=== PATIENT | female | born 1980 | race African-American/Black ===

== ENCOUNTER 2018-09-10 05:17 | Emergency (ER) | payer BC, OTHER ==
[2018-09-10] MEDS ORDERED: ACETAMINOPHEN 325 MG TABLET (FP) PO ONE (05:35)
[2018-09-10 05:47] VITALS: BMI 33.9
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
[2018-09-10 07:25] VITALS: BP 143/90; PULSE 84; TEMP 98.4
== END 2018-09-10 07:24 | disposition home or self-care (01) ==
LOC: JER 05:17
DX: R51 Headache (principal); Y07.03 Male partner, perpetrator of maltreatment and neglect; Y93.89 Activity, other specified; Y92.89 Other specified places as the place of occurrence of the external cause; Y99.0 Civilian activity done for income or pay; F32.9 Major depressive disorder, single episode, unspecified; Z87.891 Personal history of nicotine dependence
CPT/HCPCS: 99282-25

== ENCOUNTER 2020-12-18 20:01 | Inpatient (IN) | payer BC, OTHER ==
[2020-12-18] MEDS ORDERED: morphine CARPU-JECT 4 MG/1 ML DISP.SYRIN IVPUSH ONE (23:56)
[2020-12-18] MEDS ORDERED: SODIUM CHLORIDE 1,000 ML IV STA (23:56)
[2020-12-19] MEDS ORDERED: ONDANSETRON 4 MG/2 ML VIAL IVPUSH ONE
[2020-12-19 00:04] LABS: BASO % 0.2 % (0-2.0); EOS % 0.1 % (0-4.5); HEMOGLOBIN 12.1 GM/dL (10.7-15.3); LYMPH % 6.7 % (8-40); MCH 24.3 pg (25.7-33.7); MCHC 34.5 g/dl (32.0-36.0); MEAN CELL VOLUME 70.4 fl (80-96); MEAN PLT VOLUME 7.9 fl (7.5-11.1); MONO % 4.8 % (3.8-10.2); NEUT % 88.2 % (42.8-82.8); PLATELET COUNT 270 10^3/uL (134-434); RBC 4.97 M/mm3 (3.60-5.2); RDW 15.3 % (11.6-15.6)
[2020-12-19 00:05] LABS: EPI CELLS 4 /uL (0-25.1); HYALINE CASTS 1 /uL (0-3.1); URINE APPEARANCE CLEAR; URINE BACTERIA 7 /uL (0-1359); URINE BILIRUBIN NEGATIVE (NEGATIVE); URINE COLOR YELLOW; URINE GLUCOSE (UA) 1+ (NEGATIVE); URINE KETONE NEGATIVE (NEGATIVE); URINE LEUK ESTERASE NEGATIVE (NEGATIVE); URINE NITRITE NEGATIVE (NEGATIVE); URINE PROTEIN 2+ (NEGATIVE); URINE RBC 1525 /uL (0-23.9); URINE UROBILINOGEN 0.2 mg/dL (0.2-1.0); URINE WBC 10 /uL (0-25.8)
[2020-12-19 00:13] LABS: ALBUMIN 4.3 g/dl (3.4-5.0); CALCIUM 9.2 mg/dL (8.5-10.1)
[2020-12-19 00:16] LABS: CREATININE 0.9 mg/dL (0.55-1.3)
[2020-12-19 00:18] LABS: BILIRUBIN,TOTAL 0.3 mg/dL (0.2-1); TOT PROT 8.7 g/dl (6.4-8.2)
[2020-12-19] MEDS ORDERED: MORPHINE SULFATE 2 MG/ML VIAL ONE ×2 (00:18→07:48)
[2020-12-19 00:44] LABS: LACTIC ACID 3.6 mmol/L (0.4-2.0)
[2020-12-19] MEDS ORDERED: SODIUM CHLORIDE 1,000 ML IV STA (00:48)
[2020-12-19] MEDS ORDERED: ONDANSETRON 4 MG/2 ML VIAL ONE (01:28)
[2020-12-19] MEDS ORDERED: morphine CARPU-JECT 4 MG/1 ML DISP.SYRIN IVPUSH ONE (01:31)
[2020-12-19] MEDS ORDERED: morphine SULFATE 4 MG/ML VIAL ONE (01:34)
[2020-12-19] MEDS ORDERED: SODIUM CHLORIDE 1,000 ML IV SCH (01:45)
[2020-12-19] MEDS ORDERED: CEFTRIAXONE 1 GM in DEXTROSE 5%-WATER - 100 ML IVPB ONE (02:45)
[2020-12-19] MEDS ORDERED: CEFTRIAXONE 1 GM/50 ML BAG ONE ×2 (02:54→07:44)
[2020-12-19] MEDS ORDERED: TAMSULOSIN HCL 0.4 MG CAP PO ONE ×2 (02:54→10:00)
[2020-12-19] MEDS ORDERED: KETOROLAC TROMETHAMINE 30 MG/1 ML VIAL IVPUSH ONE (02:55)
[2020-12-19] MEDS ORDERED: TAMSULOSIN HCL 0.4 MG CAP ONE ×2 (03:03→10:20)
[2020-12-19] MEDS ORDERED: KETOROLAC TROMETHAMINE 30 MG/1 ML VIAL ONE (03:03)
[2020-12-19] MEDS ORDERED: morphine SULFATE 4 MG/ML VIAL IVPUSH PRN (04:37)
[2020-12-19] MEDS ORDERED: SODIUM CHLORIDE 0.45% 1,000 ML IV SCH (04:45)
[2020-12-19] MEDS ORDERED: amLODIPine BESYLATE 5 MG TABLET (FP) PO ONE (05:15)
[2020-12-19] MEDS: INSULIN (NOVOLOG) ASPART 100 UNITS/ML 10ML VIAL SQ SCH ×4 (06:36→21:43)
[2020-12-19 07:13] LABS: HEMATOCRIT 33.9 % (32.4-45.2); HEMOGLOBIN 11.5 GM/dL (10.7-15.3); MCH 24.3 pg (25.7-33.7); MEAN CELL VOLUME 71.4 fl (80-96); MEAN PLT VOLUME 7.8 fl (7.5-11.1); PLATELET COUNT 261 10^3/uL (134-434); RBC 4.75 M/mm3 (3.60-5.2); RDW 15.7 % (11.6-15.6); WHITE BLOOD COUNT 12.3 K/mm3 (4.0-10.0)
[2020-12-19 07:19] LABS: INR 1.22 (0.83-1.09); PROTHROMBIN TIME (PATIENT) 14.7 SEC (9.7-13.0)
[2020-12-19 07:35] LABS: LACTIC ACID 2.7 mmol/L (0.4-2.0)
[2020-12-19 07:45] LABS: ALBUMIN 4.1 g/dl (3.4-5.0); CALCIUM 8.9 mg/dL (8.5-10.1)
[2020-12-19 07:46] LABS: BLOOD UREA NITROGEN 10.9 mg/dL (7-18); MAGNESIUM 1.7 mg/dL (1.8-2.4)
[2020-12-19 07:49] LABS: PHOSPHOROUS 4.2 mg/dL (2.5-4.9); URIC ACID 4.7 mg/dL (2.6-7.2)
[2020-12-19 07:51] LABS: BILIRUBIN,TOTAL 0.4 mg/dL (0.2-1)
[2020-12-19] MEDS: MORPHINE SULFATE 2 MG/ML VIAL IVPUSH PRN (07:51)
[2020-12-19] MEDS ORDERED: CEFTRIAXONE 1 GM in DEXTROSE 5%-WATER - 50 ML IVPB ONE (08:00)
[2020-12-19] MEDS ORDERED: ACETAMINOPHEN INJECTION 100 ML IVPB ONE (10:20)
[2020-12-19] MEDS: ACETAMINOPHEN 1000 MG/100 ML VIAL (NON FORMULARY) IVPB PRN (10:30)
[2020-12-19] MEDS ORDERED: INSULIN SLIDING SCALE (NOVOLOG) 1 VIAL SQ ONE (21:39)
[2020-12-19] MEDS ORDERED: LISINOPRIL 5 MG TABLET PO SCH (22:00)
[2020-12-20] MEDS: MORPHINE SULFATE 2 MG/ML VIAL IVPUSH PRN ×3 (00:50→22:00)
[2020-12-20] MEDS: ACETAMINOPHEN 1000 MG/100 ML VIAL (NON FORMULARY) IVPB PRN ×2 (03:42→11:12)
[2020-12-20 04:30] VITALS: BMI 38.5
[2020-12-20] MEDS ORDERED: PNEUMOC 13-VAL CONJ-DIP CRM/PF 0.5 ML DISP.SYRIN IM ONE (04:34)
[2020-12-20] MEDS: INSULIN (NOVOLOG) ASPART 100 UNITS/ML 10ML VIAL SQ SCH ×4 (06:00→21:58)
[2020-12-20 09:02] LABS: HEMATOCRIT 32.3 % (32.4-45.2); HEMOGLOBIN 11.1 GM/dL (10.7-15.3); MCH 24.4 pg (25.7-33.7); MCHC 34.4 g/dl (32.0-36.0); MEAN CELL VOLUME 70.9 fl (80-96); MEAN PLT VOLUME 7.8 fl (7.5-11.1); PLATELET COUNT 236 10^3/uL (134-434); RBC 4.55 M/mm3 (3.60-5.2); RDW 15.5 % (11.6-15.6); WHITE BLOOD COUNT 9.8 K/mm3 (4.0-10.0)
[2020-12-20 09:25] LABS: ALBUMIN 3.7 g/dl (3.4-5.0); BLOOD UREA NITROGEN 11.8 mg/dL (7-18); CALCIUM 8.6 mg/dL (8.5-10.1)
[2020-12-20 09:26] LABS: MAGNESIUM 2.1 mg/dL (1.8-2.4)
[2020-12-20 09:28] LABS: CREATININE 0.9 mg/dL (0.55-1.3); PHOSPHOROUS 4.2 mg/dL (2.5-4.9)
[2020-12-20 09:29] LABS: BILIRUBIN,TOTAL 0.9 mg/dL (0.2-1)
[2020-12-20 09:30] LABS: TOT PROT 7.2 g/dl (6.4-8.2)
[2020-12-20] MEDS ORDERED: HYDROCHLOROTHIAZIDE 12.5 MG CAPSULE (FP) PO SCH (10:00)
[2020-12-20] MEDS ORDERED: CEFTRIAXONE 1 GM in DEXTROSE 5%-WATER - 50 ML IVPB SCH (10:00)
[2020-12-20] MEDS ORDERED: PNEUMOCOCCAL 23 VACCINE 0.5 ML VIAL IM ONE (10:00)
[2020-12-20] MEDS ORDERED: DEXTROSE 5%-WATER - 50 ML IVPB ONE (10:29)
[2020-12-20] MEDS ORDERED: cefTRIAXone SODIUM 1 GM VIAL ONE (10:29)
[2020-12-20] MEDS ORDERED: PROPOFOL 20 ML ONE ×2 (12:56→13:10)
[2020-12-20] MEDS ORDERED: DEXAMETHASONE SOD PHOSPHATE 4 MG/1 ML VIAL ONE (12:56)
[2020-12-20] MEDS ORDERED: MIDAZOLAM HCL 2 MG/2 ML SINGLE DOSE VIAL ONE (12:56)
[2020-12-20] MEDS ORDERED: SUCCINYLCHOLINE CHLORIDE 200 MG/10 ML SYRINGE ONE (12:56)
[2020-12-20] MEDS ORDERED: GENTAMICIN SO4 80 MG/2 ML VIAL ONE (13:08)
[2020-12-20] MEDS ORDERED: GENTAMICIN SO4 80 MG/2 ML VIAL IVPB ONE (13:08)
[2020-12-20] MEDS ORDERED: ONDANSETRON 4 MG/2 ML VIAL IVPUSH PRN (14:10)
[2020-12-20] MEDS ORDERED: ACETAMINOPHEN 1000 MG/100 ML VIAL (NON FORMULARY) IVPB PRN (14:14)
[2020-12-20] MEDS ORDERED: LACTATED RINGERS SOLUTION 1,000 ML IV SCH (14:15)
[2020-12-20] MEDS ORDERED: LISINOPRIL 5 MG TABLET PO SCH (22:00)
[2020-12-21] MEDS: MORPHINE SULFATE 2 MG/ML VIAL IVPUSH PRN ×2 (02:10→06:39)
[2020-12-21] MEDS: INSULIN (NOVOLOG) ASPART 100 UNITS/ML 10ML VIAL SQ SCH ×2 (06:40→12:03)
[2020-12-21] MEDS ORDERED: CEFTRIAXONE 1 GM in DEXTROSE 5%-WATER - 50 ML IVPB SCH (10:00)
[2020-12-21] MEDS ORDERED: HYDROCHLOROTHIAZIDE 12.5 MG CAPSULE (FP) PO SCH (10:00)
[2020-12-21] MEDS ORDERED: DEXTROSE 5%-WATER - 50 ML IVPB ONE (10:24)
[2020-12-21] MEDS ORDERED: cefTRIAXone SODIUM 1 GM VIAL ONE (10:24)
[2020-12-21 10:33] LABS: ALBUMIN 3.4 g/dl (3.4-5.0); BLOOD UREA NITROGEN 13.3 mg/dL (7-18); CALCIUM 8.4 mg/dL (8.5-10.1)
[2020-12-21 10:36] LABS: CREATININE 0.9 mg/dL (0.55-1.3)
[2020-12-21 10:38] LABS: BILIRUBIN,TOTAL 0.7 mg/dL (0.2-1); TOT PROT 7.2 g/dl (6.4-8.2)
[2020-12-21] MEDS ORDERED: POTASSIUM CHLORIDE TABS 20 MEQ TABLET.ER (FP) PO ONE (11:45)
[2020-12-21 14:13] VITALS: BP 136/76; PULSE 82; TEMP 98.2
[2021-01-01 10:07] LABS: CA OXALATE MONOHYDR. 80%; SIZE 4X5; WEIGHT 70 MG
== END 2020-12-21 16:38 | disposition home or self-care (01) | DRG 660 ==
LOC: JER 20:01 → JERBED 12-19 02:55 → J5S 12-19 21:25
PROVIDERS: ADMIT Internal Medicine; ATTEND Internal Medicine
PROC: 0TC68ZZ Extirpation of Matter from Right Ureter, Via Natural or Artificial Opening Endoscopic (ICD-10-PCS; principal; 2020-12-20 13:00)
PROC: 0T768DZ Dilation of Right Ureter with Intraluminal Device, Via Natural or Artificial Opening Endoscopic (ICD-10-PCS; 2020-12-20 13:00)
DX: N13.2 Hydronephrosis with renal and ureteral calculous obstruction (principal); E87.2 Acidosis; N23 Unspecified renal colic; E11.9 Type 2 diabetes mellitus without complications; F32.9 Major depressive disorder, single episode, unspecified; F41.9 Anxiety disorder, unspecified; D57.3 Sickle-cell trait; Z68.38 Body mass index [BMI] 38.0-38.9, adult; E66.01 Morbid (severe) obesity due to excess calories
CPT/HCPCS: 36415; 74176-TC; 76000-TC-FY; 80048; 80053; 80061; 81003; 82043; 82360; 82570; 82962; 83036; 83605; 83690; 83735; 84100; 84156; 84550; 84703; 85025; 85027; 85610; 87086; 87186; 88300-TC; 90732; 93005; 93010; 94760; 99285-25; C9803; G0009; J0131; U0003; U0005

== ENCOUNTER 2021-01-24 03:25 | Emergency (ER) | payer OTHER ==
[2021-01-24 04:01] VITALS: BP 158/96; PULSE 98; TEMP 98.9; BMI 37.1
[2021-01-24] MEDS ORDERED: ONDANSETRON 4 MG/2 ML VIAL IVPUSH ONE (04:25)
[2021-01-24] MEDS ORDERED: morphine CARPU-JECT 4 MG/1 ML DISP.SYRIN IVPUSH ONE (04:25)
[2021-01-24] MEDS ORDERED: SODIUM CHLORIDE 0.9% 500 ML INFUS.BAG IV ONE (04:27)
[2021-01-24] MEDS ORDERED: morphine SULFATE 4 MG/ML VIAL ONE (04:34)
[2021-01-24] MEDS ORDERED: ONDANSETRON 4 MG/2 ML VIAL ONE (04:34)
[2021-01-24 04:54] LABS: BASO % 0.4 % (0-2.0); EOS % 0.5 % (0-4.5); HEMATOCRIT 30.4 % (32.4-45.2); HEMOGLOBIN 10.5 GM/dL (10.7-15.3); LYMPH % 13.9 % (8-40); MCH 24.4 pg (25.7-33.7); MCHC 34.6 g/dl (32.0-36.0); MEAN CELL VOLUME 70.4 fl (80-96); NEUT % 79.2 % (42.8-82.8); PLATELET COUNT 256 10^3/uL (134-434); RBC 4.32 M/mm3 (3.60-5.2); RDW 15.6 % (11.6-15.6); WHITE BLOOD COUNT 10.1 K/mm3 (4.0-10.0)
[2021-01-24 05:08] LABS: ALBUMIN 3.9 g/dl (3.4-5.0); BLOOD UREA NITROGEN 12.4 mg/dL (7-18); CALCIUM 8.4 mg/dL (8.5-10.1)
[2021-01-24 05:12] LABS: BILIRUBIN,TOTAL 0.3 mg/dL (0.2-1); TOT PROT 7.9 g/dl (6.4-8.2)
[2021-01-24] MEDS ORDERED: KETOROLAC TROMETHAMINE 30 MG/1 ML VIAL IVPUSH ONE (05:24)
[2021-01-24] MEDS ORDERED: KETOROLAC TROMETHAMINE 30 MG/1 ML VIAL ONE (05:28)
[2021-01-24 05:50] LABS: EPI CELLS >36 /uL (0-25.1); HYALINE CASTS 0 /uL (0-3.1); PH,URINE 6.5 (5.0-8.0); URINE APPEARANCE CLEAR; URINE BACTERIA 171 /uL (0-1359); URINE BILIRUBIN NEGATIVE (NEGATIVE); URINE COLOR YELLOW; URINE GLUCOSE (UA) 2+ (NEGATIVE); URINE KETONE NEGATIVE (NEGATIVE); URINE LEUK ESTERASE NEGATIVE (NEGATIVE); URINE NITRITE NEGATIVE (NEGATIVE); URINE PROTEIN 1+ (NEGATIVE); URINE RBC 38 /uL (0-23.9); URINE UROBILINOGEN 0.2 mg/dL (0.2-1.0); URINE WBC 5 /uL (0-25.8)
[2021-01-24] MEDS ORDERED: POTASSIUM CHLORIDE TABS 20 MEQ TABLET.ER (FP) PO ONE (06:25)
[2021-01-24] MEDS ORDERED: POTASSIUM CHLORIDE TABS 10 MEQ TABLET.ER (FP) ONE (06:44)
== END 2021-01-24 09:20 | disposition home or self-care (01) ==
LOC: JER 03:25
PROC: 3E0333Z Introduction of Anti-inflammatory into Peripheral Vein, Percutaneous Approach (ICD-10-PCS; principal; 2021-01-24)
PROC: 3E033GC Introduction of Other Therapeutic Substance into Peripheral Vein, Percutaneous Approach (ICD-10-PCS; 2021-01-24)
PROC: 3E033GC Introduction of Other Therapeutic Substance into Peripheral Vein, Percutaneous Approach (ICD-10-PCS; 2021-01-24)
DX: N20.1 Calculus of ureter (principal)
CPT/HCPCS: 36415; 74176-TC; 80053; 81003; 84703; 85025; 87077; 87086; 99285-25; C9803; U0003; U0005

== ENCOUNTER 2022-12-12 10:35 | Inpatient (IN) | payer OTHER ==
[2022-12-12] MEDS ORDERED: OXYTOCIN 30 UNITS in 0.9% NS 30 UNIT/500 ML INFUS.BAG IVPB SCH (11:30)
[2022-12-12 11:37] VITALS: BMI 37.0
[2022-12-12] MEDS: ELECTROLYTE-148 SOLN 1,000 ML IV SCH ×2 (12:30→17:08)
[2022-12-12] MEDS ORDERED: OXYTOCIN 30 UNITS in 0.9% NS 30 UNIT/500 ML INFUS.BAG IVPB ONE (12:41)
[2022-12-12 13:46] LABS: POTASSIUM 3.8 mmol/L (3.5-5.1)
[2022-12-12 13:49] LABS: ALBUMIN 2.7 g/dl (3.4-5.0); CALCIUM 9.4 mg/dL (8.5-10.1)
[2022-12-12 13:50] LABS: BLOOD UREA NITROGEN 5.7 mg/dL (7-18)
[2022-12-12 13:51] LABS: CREATININE 0.5 mg/dL (0.55-1.3)
[2022-12-12 13:54] LABS: BILIRUBIN,TOTAL 0.5 mg/dL (0.2-1); TOT PROT 6.4 g/dl (6.4-8.2)
[2022-12-12] MEDS ORDERED: SODIUM CHLORIDE 1,000 ML IV ONE (16:15)
[2022-12-12] MEDS ORDERED: CITRIC ACID/SODIUM CITRATE 30 ML UNIT-DOSE CUP PO ONE (18:54)
[2022-12-12] MEDS ORDERED: PHENYLEPHRINE HCL 10 MG/1 ML SINGLE DOSE VIAL ONE (18:56)
[2022-12-12] MEDS ORDERED: ONDANSETRON 4 MG/2 ML VIAL ONE (18:56)
[2022-12-12] MEDS ORDERED: ePHEDrine SULFATE 50 MG/1 ML AMPULE ONE (18:56)
[2022-12-12] MEDS ORDERED: OXYTOCIN 10 UNITS/ML VIAL ONE (18:56)
[2022-12-12] MEDS ORDERED: morphine SULFATE/PF 1 MG/2 ML (2cc Syringe - QUVA) ONE (18:56)
[2022-12-12] MEDS ORDERED: FENTANYL CITRATE/PF 50 MCG/ML VIAL ONE ×2 (18:56→21:13)
[2022-12-12] MEDS ORDERED: SENNOSIDES/DOCUSATE COMBO (SENNA PLUS) TABLET (UD) PO PRN (21:37)
[2022-12-12] MEDS ORDERED: OXYTOCIN 20 UNITS in 0.9% NS 20 UNIT/1,000 ML INFUS.BAG IV SCH (21:45)
[2022-12-12] MEDS ORDERED: oxyCODONE HCL 5 MG TABLET PO PRN ×2 (21:46)
[2022-12-12] MEDS ORDERED: OXYTOCIN 20 UNITS in 0.9% NS 20 UNIT/1,000 ML INFUS.BAG IV ONE (22:00)
[2022-12-12] MEDS ORDERED: LABETALOL HCL 100 MG TABLET (FP) ONE (22:10)
[2022-12-12] MEDS: LABETALOL HCL 100 MG TABLET (FP) PO PRN (22:12)
[2022-12-12] MEDS ORDERED: ROCURONIUM BROMIDE 50 MG/5 ML SYRINGE ONE (22:22)
[2022-12-12] MEDS ORDERED: MIDAZOLAM HCL 2 MG/2 ML SINGLE DOSE VIAL ONE ×2 (22:59→23:02)
[2022-12-12] MEDS ORDERED: HYDROmorphone HCl 2 MG/ML VIAL ONE (23:32)
[2022-12-13] MEDS ORDERED: ACETAMINOPHEN INJECTION 100 ML IVPB ONE (00:47)
[2022-12-13] MEDS: ACETAMINOPHEN 1000 MG/100 ML BAG IVPB SCH ×4 (00:50→17:28)
[2022-12-13] MEDS: IBUPROFEN 800 MG/8 ML IJ IVPB SCH ×4 (03:08→20:55)
[2022-12-13 08:28] LABS: BASO % 0.2 % (0-2.0); HEMATOCRIT 31.3 % (32.4-45.2); HEMOGLOBIN 10.9 GM/dL (10.7-15.3); LYMPH % 8.3 % (8-40); MCH 25.6 pg (25.7-33.7); MCHC 34.8 g/dl (32.0-36.0); MEAN CELL VOLUME 73.6 fl (80-96); MEAN PLT VOLUME 8.8 fl (7.5-11.1); MONO % 7.2 % (3.8-10.2); NEUT % 84.3 % (42.8-82.8); PLATELET COUNT 183 10^3/uL (134-434); RBC 4.25 M/mm3 (3.60-5.2); RDW 16.8 % (11.6-15.6); WHITE BLOOD COUNT 10.8 K/mm3 (4.0-10.0)
[2022-12-13] MEDS: LABETALOL HCL 100 MG TABLET (FP) PO PRN ×2 (08:39→21:13)
[2022-12-13 09:01] LABS: ALBUMIN 2.5 g/dl (3.4-5.0); BLOOD UREA NITROGEN 5.4 mg/dL (7-18); CALCIUM 8.5 mg/dL (8.5-10.1)
[2022-12-13 09:04] LABS: CREATININE 0.4 mg/dL (0.55-1.3)
[2022-12-13 09:06] LABS: TOT PROT 5.5 g/dl (6.4-8.2)
[2022-12-13] MEDS: SIMETHICONE 80 MG TAB.CHEW (FP) PO PRN (21:13)
[2022-12-13] MEDS ORDERED: BISACODYL 10 MG SUPP.RECT RC PRN (21:38)
[2022-12-14] MEDS: SIMETHICONE 80 MG TAB.CHEW (FP) PO PRN (06:22)
[2022-12-14] MEDS: IBUPROFEN 600 MG TABLET (FP) PO PRN ×3 (06:22→21:25)
[2022-12-14] MEDS ORDERED: ACETAMINOPHEN 500 MG TABLET (FP) PO PRN (06:30)
[2022-12-14] MEDS: LABETALOL HCL 100 MG TABLET (FP) PO PRN ×2 (08:57→21:25)
[2022-12-15] MEDS: LABETALOL HCL 100 MG TABLET (FP) PO PRN (09:00)
[2022-12-15] MEDS: IBUPROFEN 600 MG TABLET (FP) PO PRN (09:01)
[2022-12-15 09:40] VITALS: RESP 16
[2022-12-15 10:37] VITALS: TEMP 98.3
[2022-12-15 12:56] VITALS: BP 150/79; PULSE 86
== END 2022-12-15 15:50 | disposition home or self-care (01) | DRG 788 ==
LOC: JLDR 10:35 → J3W 12-13 01:12
PROVIDERS: ADMIT Obstetrics & Gynecology; ATTEND Obstetrics & Gynecology
PROC: 10D00Z1 Extraction of Products of Conception, Low, Open Approach (ICD-10-PCS; principal; 2022-12-12)
DX: O14.94 Unspecified pre-eclampsia, complicating childbirth (principal); O99.214 Obesity complicating childbirth; O24.429 Gestational diabetes mellitus in childbirth, unspecified control; O10.92 Unspecified pre-existing hypertension complicating childbirth; Z3A.37 37 weeks gestation of pregnancy; Z37.0 Single live birth
CPT/HCPCS: 36415; 80053; 82570; 84156; 85025; 86850; 86900; 86901; 88307-TC

== ENCOUNTER 2022-12-28 09:09 | Inpatient (IN) | payer OTHER ==
[2022-12-28] MEDS ORDERED: ACETAMINOPHEN 500 MG TABLET (FP) PO ONE (09:44)
[2022-12-28] MEDS ORDERED: ACETAMINOPHEN 500 MG TABLET (FP) ONE (09:59)
[2022-12-28] MEDS ORDERED: SODIUM CHLORIDE 0.9% 500 ML INFUS.BAG IV ONE (11:16)
[2022-12-28 11:46] LABS: HEMATOCRIT 33.7 % (32.4-45.2); HEMOGLOBIN 11.6 GM/dL (10.7-15.3); MCH 24.9 pg (25.7-33.7); MCHC 34.6 g/dl (32.0-36.0); MEAN PLT VOLUME 7.9 fl (7.5-11.1); PLATELET COUNT 212 10^3/uL (134-434); RBC 4.67 M/mm3 (3.60-5.2); RDW 16.1 % (11.6-15.6); WHITE BLOOD COUNT 11.3 K/mm3 (4.0-10.0)
[2022-12-28 12:31] LABS: LACTIC ACID 2.1 mmol/L (0.4-2.0)
[2022-12-28 12:52] LABS: ALBUMIN 3.5 g/dl (3.4-5.0); BILIRUBIN,TOTAL 1.1 mg/dL (0.2-1); BLOOD UREA NITROGEN 9.2 mg/dL (7-18); CALCIUM 8.3 mg/dL (8.5-10.1); CREATININE 0.8 mg/dL (0.55-1.3); MAGNESIUM 1.6 mg/dL (1.8-2.4); POTASSIUM 3.1 mmol/L (3.5-5.1); TOT PROT 7.2 g/dl (6.4-8.2)
[2022-12-28] MEDS ORDERED: MAGNESIUM SULF 50% (8.12 MEQ/2 ML-1 GM VIAL) IVPB ONE (12:58)
[2022-12-28 13:14] LABS: ANISOCYTOSIS 0; HELMET CELLS 0; HOWELL-JOLLY BODIES 0; MACROCYTOSIS 0; OVALOCYTE 0; ROULEAU 0; SICKELED CELLS 0; TARGET CELLS 0; TEAR DROP CELLS 0; TOXIC GRANULATION 0
[2022-12-28] MEDS ORDERED: MAGNESIUM SULFATE IN WATER 2 GM/50 ML IVPB IVPB ONE ×3 (14:09→19:08)
[2022-12-28] MEDS ORDERED: POTASSIUM CHLORIDE TABS 20 MEQ TABLET.ER (FP) PO ONE ×2 (14:41→15:03)
[2022-12-28] MEDS ORDERED: KETOROLAC TROMETHAMINE 15 MG/ML VIAL ONE (14:45)
[2022-12-28] MEDS ORDERED: KETOROLAC TROMETHAMINE 15 MG/ML VIAL IVPUSH ONE (14:45)
[2022-12-28] MEDS ORDERED: VANCOMYCIN 1,000 MG in DEXTROSE 5%-WATER - 250 ML IVPB ONE (15:31)
[2022-12-28] MEDS ORDERED: PIPERACILLIN/TAZOB 4.5 GM 4.5 GM in DEXTROSE 5%-WATER 100 ML IVPB ONE (15:32)
[2022-12-28 15:37] LABS: EPI CELLS 15 /uL (0-25.1); HYALINE CASTS 1 /uL (0-3.1); URINE APPEARANCE CLEAR; URINE BACTERIA >9,000 /uL (0-1359); URINE BILIRUBIN NEGATIVE (NEGATIVE); URINE COLOR ORANGE; URINE GLUCOSE (UA) NEGATIVE (NEGATIVE); URINE KETONE NEGATIVE (NEGATIVE); URINE LEUK ESTERASE 1+ (NEGATIVE); URINE NITRITE NEGATIVE (NEGATIVE); URINE PROTEIN NEGATIVE (NEGATIVE); URINE RBC 111 /uL (0-23.9); URINE UROBILINOGEN 0.2 mg/dL (0.2-1.0); URINE WBC 40 /uL (0-25.8)
[2022-12-28] MEDS ORDERED: SODIUM CHLORIDE 1,000 ML IV STA (16:08)
[2022-12-28] MEDS ORDERED: PIPERACILLIN/TAZOB 4.5 GM 4.5 GM/100 ML BAG IVPB ONE (16:14)
[2022-12-28] MEDS ORDERED: VANCOMYCIN 1 GRAM (PRE-DOCKED) 1,000 MG/250 ML BAG IVPB ONE (16:23)
[2022-12-28] MEDS ORDERED: DOCUSATE SODIUM 100 MG CAPSULE (FP) PO PRN (17:06)
[2022-12-28] MEDS ORDERED: LACTATED RINGERS SOLUTION 1,000 ML/1,000 ML INFUS.BAG IV SCH (17:15)
[2022-12-28] MEDS ORDERED: CEFTRIAXONE 1 GM in DEXTROSE 5%-WATER - 50 ML IVPB SCH (17:30)
[2022-12-28 18:37] LABS: POTASSIUM 3.5 mmol/L (3.5-5.1)
[2022-12-28] MEDS ORDERED: ACETAMINOPHEN INJECTION 100 ML IVPB ONE (18:37)
[2022-12-28 18:38] LABS: CALCIUM 7.7 mg/dL (8.5-10.1)
[2022-12-28 18:39] LABS: BLOOD UREA NITROGEN 10.1 mg/dL (7-18)
[2022-12-28 18:42] LABS: CREATININE 0.7 mg/dL (0.55-1.3)
[2022-12-28] MEDS ORDERED: LABETALOL HCL 5 MG/1 ML (100MG/20 ML VIAL) IVPUSH ONE (18:52)
[2022-12-28] MEDS ORDERED: ACETAMINOPHEN 1000 MG/100 ML BAG IVPB ONE (18:56)
[2022-12-28] MEDS ORDERED: LABETALOL HCL 20 MG/4 ML VIAL ONE (19:08)
[2022-12-28 20:01] LABS: BASO % 0.2 % (0-2.0); EOS % 0.1 % (0-4.5); HEMATOCRIT 30.2 % (32.4-45.2); HEMOGLOBIN 10.6 GM/dL (10.7-15.3); MCH 25.2 pg (25.7-33.7); MEAN CELL VOLUME 72.1 fl (80-96); MEAN PLT VOLUME 7.9 fl (7.5-11.1); MONO % 2.1 % (3.8-10.2); NEUT % 80.6 % (42.8-82.8); PLATELET COUNT 156 10^3/uL (134-434); RBC 4.19 M/mm3 (3.60-5.2); RDW 16.1 % (11.6-15.6); WHITE BLOOD COUNT 3.9 K/mm3 (4.0-10.0)
[2022-12-28 20:13] LABS: INR 1.51 (0.83-1.09); PROTHROMBIN TIME (PATIENT) 17.4 SEC (9.7-13.0)
[2022-12-28 20:19] LABS: POTASSIUM 3.4 mmol/L (3.5-5.1)
[2022-12-28 20:21] LABS: CALCIUM 7.8 mg/dL (8.5-10.1)
[2022-12-28 20:22] LABS: BLOOD UREA NITROGEN 12.8 mg/dL (7-18)
[2022-12-28 20:25] LABS: CREATININE 1.1 mg/dL (0.55-1.3)
[2022-12-28 20:26] LABS: BILIRUBIN,TOTAL 1.8 mg/dL (0.2-1); TOT PROT 6.2 g/dl (6.4-8.2)
[2022-12-28 21:10] LABS: LACTIC ACID 3.5 mmol/L (0.4-2.0)
[2022-12-28] MEDS ORDERED: MAGNESIUM SULFATE 20GM/500ML - 20 GM/500 ML INFUS.BAG IV SCH (21:15)
[2022-12-28] MEDS ORDERED: LABETALOL HCL 200 MG TABLET (FP) ONE (22:26)
[2022-12-28] MEDS ORDERED: LABETALOL HCL 100 MG TABLET (FP) ONE (22:26)
[2022-12-28] MEDS ORDERED: HEPARIN NA (PORCINE) 5,000 UNITS/ML 1ML VIAL ONE (22:27)
[2022-12-28] MEDS: HEPARIN NA (PORCINE) 5,000 UNITS/ML 1ML VIAL SQ SCH (22:37)
[2022-12-28] MEDS: LABETALOL HCL 200 MG TABLET (FP) PO SCH (22:42)
[2022-12-28] MEDS: CHLORHEXIDINE GLUCONATE 4% CLEANSER FOR DECOLONIZATION TP SCH (23:02)
[2022-12-28] MEDS: MUPIROCIN 2% TOPICAL OINTMENT FOR DECOLONIZATION NS SCH (23:02)
[2022-12-29 05:12] LABS: MCH 25.3 pg (25.7-33.7); MCHC 34.4 g/dl (32.0-36.0); MEAN CELL VOLUME 73.4 fl (80-96); MEAN PLT VOLUME 8.7 fl (7.5-11.1); PLATELET COUNT 180 10^3/uL (134-434); RBC 4.37 M/mm3 (3.60-5.2); RDW 16.4 % (11.6-15.6); WHITE BLOOD COUNT 10.2 K/mm3 (4.0-10.0)
[2022-12-29] MEDS: HEPARIN NA (PORCINE) 5,000 UNITS/ML 1ML VIAL SQ SCH ×3 (06:00→21:03)
[2022-12-29 06:09] LABS: ANISOCYTOSIS 2+; MACROCYTOSIS 0; TEAR DROP CELLS 1+
[2022-12-29 06:32] LABS: POTASSIUM 3.4 mmol/L (3.5-5.1)
[2022-12-29 06:35] LABS: CALCIUM 8.1 mg/dL (8.5-10.1)
[2022-12-29] MEDS ORDERED: POTASSIUM CHLORIDE ORAL LIQUID 20 MEQ/15 ML PO ONE (06:35)
[2022-12-29 06:36] LABS: BLOOD UREA NITROGEN 11.4 mg/dL (7-18); MAGNESIUM 4.8 mg/dL (1.8-2.4)
[2022-12-29 06:38] LABS: CREATININE 0.7 mg/dL (0.55-1.3)
[2022-12-29 06:40] LABS: BILIRUBIN,TOTAL 1.3 mg/dL (0.2-1); TOT PROT 6.3 g/dl (6.4-8.2)
[2022-12-29 07:28] LABS: INR 1.34 (0.83-1.09); PROTHROMBIN TIME (PATIENT) 15.5 SEC (9.7-13.0)
[2022-12-29] MEDS: ACETAMINOPHEN 500 MG TABLET (FP) PO PRN ×2 (07:41→20:16)
[2022-12-29] MEDS: LABETALOL HCL 200 MG TABLET (FP) PO SCH ×2 (09:06→21:02)
[2022-12-29] MEDS: CEFTRIAXONE 1 GM in DEXTROSE 5%-WATER - 50 ML IVPB SCH (09:06)
[2022-12-29] MEDS ORDERED: PRENATAL VITAMINS W/ FOLIC ACID TABLET (FP) PO SCH (10:00)
[2022-12-29 10:21] LABS: MAGNESIUM 5.4 mg/dL (1.8-2.4)
[2022-12-29] MEDS: MUPIROCIN 2% TOPICAL OINTMENT FOR DECOLONIZATION NS SCH ×2 (17:30→21:15)
[2022-12-29] MEDS: CHLORHEXIDINE GLUCONATE 4% CLEANSER FOR DECOLONIZATION TP SCH (21:06)
[2022-12-30] MEDS: ACETAMINOPHEN 500 MG TABLET (FP) PO PRN ×2 (02:54→08:15)
[2022-12-30] MEDS: HEPARIN NA (PORCINE) 5,000 UNITS/ML 1ML VIAL SQ SCH (06:09)
[2022-12-30 06:43] VITALS: RESP 22
[2022-12-30 07:03] LABS: BASO % 0.7 % (0-2.0); EOS % 1.9 % (0-4.5); HEMATOCRIT 29.7 % (32.4-45.2); HEMOGLOBIN 10.4 GM/dL (10.7-15.3); LYMPH % 24.9 % (8-40); MCH 25.3 pg (25.7-33.7); MEAN CELL VOLUME 72.1 fl (80-96); MEAN PLT VOLUME 8.3 fl (7.5-11.1); MONO % 9.5 % (3.8-10.2); PLATELET COUNT 160 10^3/uL (134-434); RBC 4.11 M/mm3 (3.60-5.2); RDW 16.2 % (11.6-15.6); WHITE BLOOD COUNT 6.2 K/mm3 (4.0-10.0)
[2022-12-30 07:22] LABS: POTASSIUM 3.5 mmol/L (3.5-5.1)
[2022-12-30 07:28] LABS: ALBUMIN 2.8 g/dl (3.4-5.0); CALCIUM 8.1 mg/dL (8.5-10.1); MAGNESIUM 2.3 mg/dL (1.8-2.4)
[2022-12-30 07:29] LABS: BLOOD UREA NITROGEN 10.4 mg/dL (7-18)
[2022-12-30 07:30] LABS: CREATININE 0.5 mg/dL (0.55-1.3)
[2022-12-30 07:31] LABS: PHOSPHOROUS 3.1 mg/dL (2.5-4.9)
[2022-12-30 07:32] LABS: BILIRUBIN,TOTAL 0.6 mg/dL (0.2-1); TOT PROT 6.2 g/dl (6.4-8.2)
[2022-12-30 09:17] VITALS: BP 147/96; PULSE 83; TEMP 98.3
[2022-12-30] MEDS: LABETALOL HCL 200 MG TABLET (FP) PO SCH (09:20)
[2022-12-30] MEDS: CEFTRIAXONE 1 GM in DEXTROSE 5%-WATER - 50 ML IVPB SCH (09:21)
[2022-12-30] MEDS: MUPIROCIN 2% TOPICAL OINTMENT FOR DECOLONIZATION NS SCH (09:21)
[2022-12-30 12:32] VITALS: BMI 35.1
== END 2022-12-30 12:40 | disposition home or self-care (01) | DRG 776 ==
LOC: JER 09:09 → JERBED 16:51 → JICU 12-29 00:17
PROVIDERS: ADMIT Internal Medicine; ATTEND Internal Medicine
DX: O85 Puerperal sepsis (principal); O98.83 Other maternal infectious and parasitic diseases complicating the puerperium; N39.0 Urinary tract infection, site not specified; E87.20 Acidosis, unspecified; I24.8 Other forms of acute ischemic heart disease; O14.95 Unspecified pre-eclampsia, complicating the puerperium; R94.31 Abnormal electrocardiogram [ECG] [EKG]; E83.42 Hypomagnesemia; K80.20 Calculus of gallbladder without cholecystitis without obstruction; R00.0 Tachycardia, unspecified; B96.1 Klebsiella pneumoniae [K. pneumoniae] as the cause of diseases classified elsewhere
CPT/HCPCS: 0241U-QW; 36415; 70450-TC; 71046-TC-FY; 74176-TC; 76830-TC; 76856-TC; 80048; 80053; 81003; 83605; 83735; 84100; 84439; 84443; 84484; 84703; 85025; 85610; 87040; 87086; 87186; 93005; 93010; 93970-TC; 99285-25; J1644